=== PATIENT | female | born 1965 | race Caucasian/White ===

== ENCOUNTER 2016-12-31 21:24 | Inpatient (IN) | payer MEDICARE, MEDICAID ==
[~2016-12-31] VITALS: Ht 162.6 cm; Wt 62.0 kg
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
[~2016-12-31 21:24] MED LIST: ALBUTEROL2.5 MG/0.5 INH; AMERGE2.5 MG PO; ATARAX25 MG PO; ATROVENT I0.5 MG/2.5 INH; BACTROBAN15 GM/TUBE TOP; DELSYM30 MG/5 ML PO; DELTASONE10 MG PO; DELTASONE5 MG PO; DILAUDID 2MG(HYD2 MG PO; K-TAB 10MEQ10 MEQ PO; LEVAQUIN 750 M750 MG PO; LEVOTHROID(SYN75 MCG PO; PRILOSEC20 MG PO; PRISTIQ ER25 MG PO; PROAIR HFA8.5 GM INH; SINGULAIR10 MG PO; [UNRECOGNIZED DRUG - OTHER] TOP
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
--- NOTE | 2017-01-01 03:32 | NUR ---
Significant Event: Patient alert and oriented X4. Up with stand by assist. L) arm had nerve block and is numb. Cannot wiggle fingers or feel sensation. Cannot feel elbow, but can feel above elbow. Reinforce dressing PRn. IV to R) forearm with fluids running at 125ml. IV good blood return. IV vacno every 12 hours X2. Vitals stable and placed on 2 liters oxygen while sleeping. Morphine 2mg given X1 at 0226 for pain and also zofran at that time. Patient slept well after. Foot pumps on. Fall risk. Abrasions noted to R) arm and R) knee. Follow up: Monitor neuro checks
--- NOTE | 2017-01-01 16:49 | NUR ---
Patient is alert and oriented, hypertensive at times, on room air. Independent in room. NAVI wrap on L) wrist has scant shadow drainage. IV infusing at 125ml/hr in the R) wrist. Has been nauseous off and on throughout the day, Zofran given early in the shift. No morning PO meds given. Morphine IV given x4 with last at 1604 and Renetta given x2 with last at 1605. Patient slept after each dose of medication but continues to rate her pain at an 8 or higher. Neuro checks performed Q2 hours.
--- NOTE | 2017-01-02 06:55 | NUR ---
Significant Event: Patient alert and oriented X4. Up with stand by assist. Saeed wrap/splint to L) arm. Patient able to wiggle first 2 fingers, states it is still kind of numb but rates pain 09/03. Gave morphine several times last at 0540 and tresa at 0541. Slept well after that. Zofran given around 0300. IVF running at 125 to R) FA. Ice as needed. Possible home today? Follow up: Laina godwin
--- NOTE | 2017-01-02 12:30 | NUR ---
Student nurse provided patient cares from 0600 to 1230. Dick Fuentes RN, [facility] Instructor
--- NOTE | 2017-01-02 17:27 | NUR ---
Patient is alert and oriented, on room air, SBA to independent. IV to R) forearm is saline locked. Splint, guaze and kaylah wrap to L) wrist. Neuro checks are within normal limits. DC'd morphine, changed her oxycodone to Q4 hours and gave Oxycodone ER this afternoon. Will have an XRay of R) knee. Continue to monitor pain, will give another dose of oxycodone before shift change.
--- NOTE | 2017-01-03 04:09 | NUR ---
Patient alert and oriented x3, pleasant, was very anxious at beging of shift was given valium and calmed down, is known to be a drug seeker last given pain medication around 0230, has kaylah wrap and splint to left arm, can wiggle fingers c/0 numbness and tingling at times, has swelling to right knee wants MRI done if here before discharge if there is not a problem with insurance otherwise he will do it outpatient, patient transfers one assist with gaitbelt, calls when needs assistance, has rested well tonight
[2017-01-03] MEDS ORDERED: ROXICODONE 5MG (5 MG PO (13:29)
[2017-01-03] MEDS ORDERED: OXYCONTIN EXTEN10 MG PO (13:30)
[2017-01-03] MEDS ORDERED: NEURONTIN300 MG PO (13:31)
--- NOTE | 2017-01-03 15:50 | NUR ---
Patient is alert and oriented, on room air. Independent in room. Will go down for a MRI this afternoon, after the results are back she will most likely go home. IV to R) forearm is saline locked. Wrist is wrapped in gauze and NAVI wrap.
--- NOTE | 2017-01-03 18:30 | NUR ---
DISMISSAL INSTRUCTIONS WERE PREPARED AND WILL REVIEWED WITH THE PATIENT AT THE BEDSIDE BY THE PRIMARY NURSE ON [employer]ENT[employer] INVESTIGATOR
== END 2017-01-03 20:35 | disposition disaster alternative care site (69) | DRG 502 ==
LOC: GACC 21:24 → GMSU 23:00
PROVIDERS: ADMIT Orthopaedic Surgery
DX: S62.102B Fracture of unspecified carpal bone, left wrist, initial encounter for open fracture (principal); M35.00 Sjogren syndrome, unspecified; I10 Essential (primary) hypertension; S80.01XA Contusion of right knee, initial encounter; V18.0XXA Pedal cycle driver injured in noncollision transport accident in nontraffic accident, initial encounter; J45.909 Unspecified asthma, uncomplicated; M79.7 Fibromyalgia; Z79.52 Long term (current) use of systemic steroids; Z79.899 Other long term (current) drug therapy; E03.9 Hypothyroidism, unspecified; F10.10 Alcohol abuse, uncomplicated; Y90.3 Blood alcohol level of 60-79 mg/100 ml; Z85.850 Personal history of malignant neoplasm of thyroid; Z92.3 Personal history of irradiation; Z98.1 Arthrodesis status; K21.9 Gastro-esophageal reflux disease without esophagitis; J44.9 Chronic obstructive pulmonary disease, unspecified; G89.11 Acute pain due to trauma; M25.461 Effusion, right knee
CPT/HCPCS: C1713; J2270; J2405; J3370; J3480; J7030; J7512

== ENCOUNTER → 2017-05-17 | Outpatient (CLI) | payer MEDICARE, MEDICAID ==
[~2017-05-17] MED LIST changes: +NEURONTIN300 MG PO; +OXYCONTIN EXTEN10 MG PO; +ROXICODONE 5MG (5 MG PO
== END | disposition disaster alternative care site (69) ==
LOC: GLAB 05-10 10:45 → GRAD 05-10 11:00 → GLAB 09:40
DX: M25.532 Pain in left wrist (principal); R20.0 Anesthesia of skin; Z47.1 Aftercare following joint replacement surgery; S52.92XD Unspecified fracture of left forearm, subsequent encounter for closed fracture with routine healing; X58.XXXD Exposure to other specified factors, subsequent encounter